=== PATIENT | male | born 1990 | race Caucasian/White ===

== ENCOUNTER 2022-06-06 22:00 | Inpatient (IN) | payer OTHER ==
[2022-06-06 22:49] VITALS: BMI 25.7
[2022-06-06] MEDS ORDERED: NICOTINE 14 MG/24 HOURS TOPICAL PATCH TD PRN (23:19)
[2022-06-06] MEDS ORDERED: IBUPROFEN 600 MG TABLET (FP) PO PRN (23:19)
[2022-06-06] MEDS ORDERED: LOPERAMIDE HCL 2 MG CAPSULE PO PRN (23:19)
[2022-06-06] MEDS ORDERED: hydrOXYzine PAMOATE 25 MG CAPSULE (FP) PO PRN (23:19)
[2022-06-06] MEDS ORDERED: BENZONATATE 200 MG CAPSULE PO PRN (23:19)
[2022-06-06] MEDS ORDERED: DICYCLOMINE HCL 10 MG CAPSULE PO PRN (23:19)
[2022-06-06] MEDS ORDERED: ACETAMINOPHEN 325 MG TABLET (FP) PO PRN ×2 (23:19)
[2022-06-06] MEDS ORDERED: MAG HYDROX/AL HYDROX/SIMETH 30 ML UNIT-DOSE CUP PO PRN (23:19)
[2022-06-06] MEDS ORDERED: NICOTINE POLACRILEX 2 MG GUM BUC PRN (23:19)
[2022-06-06] MEDS ORDERED: MAGNESIUM HYDROX 2400MG/30ML ORAL SUSPENSION 30 ML CUP PO PRN (23:19)
[2022-06-06] MEDS ORDERED: METHOCARBAMOL 500 MG TABLET PO PRN (23:19)
[2022-06-06] MEDS ORDERED: BISMUTH SUBSALICYLATE 524 MG/30 ML PO PRN (23:19)
[2022-06-06] MEDS ORDERED: P-EPHED 60MG/TRIPROLIDI 2.5MG TABLET PO PRN (23:19)
[2022-06-06] MEDS ORDERED: ONDANSETRON *ODT* 4 MG TABLET SL PRN (23:19)
[2022-06-06] MEDS ORDERED: IBUPROFEN 400 MG TABLET (FP) PO PRN (23:19)
[2022-06-06] MEDS ORDERED: POLYETHYLENE GLYCOL (HEALTHYLAX) 3350 17 GM PACKET PO PRN (23:19)
[2022-06-06] MEDS ORDERED: MELATONIN 5 MG TABLETS PO PRN (23:19)
[2022-06-06] MEDS ORDERED: BENZOCAINE/MENTHOL (CHLORASEPTIC ) LOZENGE MM PRN (23:19)
[2022-06-06] MEDS ORDERED: guaiFENesin 600 MG TABLET.ER (FP) PO PRN (23:19)
[2022-06-07] MEDS ORDERED: TUBERCULIN PPD 5 TU/0.1ML VIAL ID ONE (01:52)
[2022-06-07] MEDS: PRENATAL VITAMINS W/ FOLIC ACID TABLET (FP) PO SCH (10:29)
[2022-06-07 12:23] LABS: HEMATOCRIT 41.3 % (35.4-49); HEMOGLOBIN 14.2 GM/dL (11.7-16.9); MCH 31.8 pg (25.7-33.7); MCHC 34.5 g/dl (32.0-35.9); MEAN CELL VOLUME 92.2 fl (80-96); MEAN PLT VOLUME 10.1 fl (7.5-11.1); PLATELET COUNT 148 10^3/uL (134-434); RBC 4.48 M/mm3 (4.00-5.60); RDW 13.5 % (11.9-15.9); WHITE BLOOD COUNT 6.5 K/mm3 (4.0-10.0)
[2022-06-07 12:34] LABS: CALCIUM 8.8 mg/dL (8.5-10.1)
[2022-06-07 12:35] LABS: ALBUMIN 3.6 g/dl (3.4-5.0); CREATININE 0.7 mg/dL (0.55-1.3)
[2022-06-07 12:37] LABS: BILIRUBIN,TOTAL 0.4 mg/dL (0.2-1); TOT PROT 6.2 g/dl (6.4-8.2)
[2022-06-07] MEDS ORDERED: THIAMINE HCL 100 MG TABLET (FP) PO SCH (22:00)
[2022-06-08] MEDS: PRENATAL VITAMINS W/ FOLIC ACID TABLET (FP) PO SCH (10:20)
[2022-06-08 10:34] VITALS: BP 112/71; PULSE 66; RESP 17; TEMP 97.1
== END 2022-06-08 11:35 | disposition home or self-care (01) | DRG 774 ==
LOC: YASAS 22:00 → Y6N 06-07 01:22
PROVIDERS: ADMIT Allergy & Immunology; ATTEND Surgery
PROC: HZ2ZZZZ Detoxification Services for Substance Abuse Treatment (ICD-10-PCS; principal; 2022-06-07)
DX: F10.20 Alcohol dependence, uncomplicated (principal); F10.220 Alcohol dependence with intoxication, uncomplicated; F14.10 Cocaine abuse, uncomplicated; F12.20 Cannabis dependence, uncomplicated; F17.210 Nicotine dependence, cigarettes, uncomplicated; M54.50 Low back pain, unspecified; G89.29 Other chronic pain
CPT/HCPCS: 36415; 80053; 85027; 86780; C9803-CS; U0003; U0005

== ENCOUNTER 2022-11-19 12:00 | Inpatient (IN) | payer OTHER ==
[2022-11-19 12:43] VITALS: BMI 24.7
[2022-11-19] MEDS ORDERED: MAG HYDROX/AL HYDROX/SIMETH 30 ML UNIT-DOSE CUP PO PRN (14:38)
[2022-11-19] MEDS ORDERED: COLLOIDAL OATMEAL 1 BAR EACH TP PRN (14:38)
[2022-11-19] MEDS ORDERED: BENZONATATE 200 MG CAPSULE PO PRN (14:38)
[2022-11-19] MEDS ORDERED: NICOTINE POLACRILEX 2 MG GUM BUC PRN (14:38)
[2022-11-19] MEDS ORDERED: NALOXONE HCL 0.4 MG/ML VIAL IM PRN (14:38)
[2022-11-19] MEDS ORDERED: ACETAMINOPHEN 325 MG TABLET (FP) PO PRN (14:38)
[2022-11-19] MEDS ORDERED: MAGNESIUM HYDROX 2400MG/30ML ORAL SUSPENSION 30 ML CUP PO PRN (14:38)
[2022-11-19] MEDS ORDERED: guaiFENesin 600 MG TABLET.ER (FP) PO PRN (14:38)
[2022-11-19] MEDS ORDERED: POLYETHYLENE GLYCOL (HEALTHYLAX) 3350 17 GM PACKET PO PRN (14:38)
[2022-11-19] MEDS ORDERED: NALOXONE HCL (KLOXXADO) 8 MG SPRAY NS PRN (14:38)
[2022-11-19] MEDS ORDERED: IBUPROFEN 400 MG TABLET (FP) PO PRN (14:38)
[2022-11-19] MEDS ORDERED: BENZOCAINE/MENTHOL (CHLORASEPTIC ) LOZENGE MM PRN (14:38)
[2022-11-19] MEDS ORDERED: LOPERAMIDE HCL 2 MG CAPSULE PO PRN (14:38)
[2022-11-19] MEDS ORDERED: IBUPROFEN 600 MG TABLET (FP) PO PRN (14:38)
[2022-11-19] MEDS ORDERED: hydrOXYzine PAMOATE 25 MG CAPSULE (FP) PO PRN (14:38)
[2022-11-19] MEDS: THIAMINE HCL 100 MG TABLET (FP) PO SCH (21:58)
[2022-11-19] MEDS: MELATONIN 5 MG TABLETS PO SCH (21:58)
[2022-11-20 09:35] LABS: HEMATOCRIT 40.5 % (35.4-49); HEMOGLOBIN 14.3 GM/dL (11.7-16.9); MCH 31.4 pg (25.7-33.7); MCHC 35.3 g/dl (32.0-35.9); MEAN CELL VOLUME 88.8 fl (80-96); MEAN PLT VOLUME 9.2 fl (7.5-11.1); PLATELET COUNT 177 10^3/uL (134-434); RBC 4.56 M/mm3 (4.00-5.60); RDW 14.5 % (11.9-15.9); WHITE BLOOD COUNT 5.7 K/mm3 (4.0-10.0)
[2022-11-20 10:03] LABS: ALBUMIN 3.4 g/dl (3.4-5.0); BLOOD UREA NITROGEN 12.7 mg/dL (7-18); CALCIUM 8.4 mg/dL (8.5-10.1)
[2022-11-20 10:07] LABS: BILIRUBIN,TOTAL 0.5 mg/dL (0.2-1); CREATININE 0.7 mg/dL (0.55-1.3); TOT PROT 5.9 g/dl (6.4-8.2)
[2022-11-20] MEDS: PRENATAL VITAMINS W/ FOLIC ACID TABLET (FP) PO SCH (10:07)
[2022-11-20] MEDS: NICOTINE 21 MG/24 HOURS TOPICAL PATCH TD SCH (10:08)
[2022-11-20 11:30] LABS: POTASSIUM 4.3 mmol/L (3.5-5.1)
[2022-11-20] MEDS ORDERED: TUBERCULIN PPD 5 TU/0.1ML SYRINGE (IN PATIENT USE ONLY) ID ONE (12:00)
[2022-11-20 13:26] LABS: PH,URINE 7.5 (5.0-8.0); URINE APPEARANCE CLEAR; URINE BILIRUBIN NEGATIVE (NEGATIVE); URINE COLOR YELLOW; URINE GLUCOSE (UA) NEGATIVE (NEGATIVE); URINE KETONE NEGATIVE (NEGATIVE); URINE LEUK ESTERASE NEGATIVE (NEGATIVE); URINE NITRITE NEGATIVE (NEGATIVE); URINE PROTEIN NEGATIVE (NEGATIVE); URINE UROBILINOGEN 0.2 mg/dL (0.2-1.0)
[2022-11-20] MEDS ORDERED: ARTIFICIAL TEARS (POLYVINYL ALCOHOL) OPTH DROPS OU PRN (15:38)
[2022-11-20] MEDS: MELATONIN 5 MG TABLETS PO SCH (21:08)
[2022-11-20] MEDS: THIAMINE HCL 100 MG TABLET (FP) PO SCH (21:08)
[2022-11-21] MEDS: PRENATAL VITAMINS W/ FOLIC ACID TABLET (FP) PO SCH (10:02)
[2022-11-21] MEDS: NICOTINE 21 MG/24 HOURS TOPICAL PATCH TD SCH (10:54)
[2022-11-21] MEDS: CHOLECALCIFEROL (VIT D3) 1,000 UNIT (25 MCG) TABLET PO SCH (10:54)
[2022-11-21] MEDS: MELATONIN 5 MG TABLETS PO SCH (21:24)
[2022-11-21] MEDS: THIAMINE HCL 100 MG TABLET (FP) PO SCH (21:24)
[2022-11-22] MEDS: PRENATAL VITAMINS W/ FOLIC ACID TABLET (FP) PO SCH (10:03)
[2022-11-22] MEDS: CHOLECALCIFEROL (VIT D3) 1,000 UNIT (25 MCG) TABLET PO SCH (10:03)
[2022-11-22] MEDS: NICOTINE 21 MG/24 HOURS TOPICAL PATCH TD SCH (10:03)
[2022-11-22] MEDS: MELATONIN 5 MG TABLETS PO SCH (21:14)
[2022-11-22] MEDS: THIAMINE HCL 100 MG TABLET (FP) PO SCH (21:14)
[2022-11-23] MEDS: CHOLECALCIFEROL (VIT D3) 1,000 UNIT (25 MCG) TABLET PO SCH (09:52)
[2022-11-23] MEDS: NICOTINE 21 MG/24 HOURS TOPICAL PATCH TD SCH ×2 (09:52→10:10)
[2022-11-23] MEDS: PRENATAL VITAMINS W/ FOLIC ACID TABLET (FP) PO SCH (09:52)
[2022-11-23] MEDS: THIAMINE HCL 100 MG TABLET (FP) PO SCH (21:30)
[2022-11-23] MEDS: MELATONIN 5 MG TABLETS PO SCH (21:31)
[2022-11-24] MEDS: CHOLECALCIFEROL (VIT D3) 1,000 UNIT (25 MCG) TABLET PO SCH ×2 (10:00→10:07)
[2022-11-24] MEDS: PRENATAL VITAMINS W/ FOLIC ACID TABLET (FP) PO SCH (10:05)
[2022-11-24] MEDS: NICOTINE 21 MG/24 HOURS TOPICAL PATCH TD SCH (10:06)
[2022-11-24] MEDS: THIAMINE HCL 100 MG TABLET (FP) PO SCH (21:13)
[2022-11-24] MEDS: MELATONIN 5 MG TABLETS PO SCH (21:14)
[2022-11-25] MEDS: CHOLECALCIFEROL (VIT D3) 1,000 UNIT (25 MCG) TABLET PO SCH (09:50)
[2022-11-25] MEDS: NICOTINE 21 MG/24 HOURS TOPICAL PATCH TD SCH (09:50)
[2022-11-25] MEDS: PRENATAL VITAMINS W/ FOLIC ACID TABLET (FP) PO SCH (09:50)
[2022-11-25] MEDS: THIAMINE HCL 100 MG TABLET (FP) PO SCH (21:56)
[2022-11-25] MEDS: MELATONIN 5 MG TABLETS PO SCH (23:03)
[2022-11-26] MEDS: CHOLECALCIFEROL (VIT D3) 1,000 UNIT (25 MCG) TABLET PO SCH (09:48)
[2022-11-26] MEDS: NICOTINE 21 MG/24 HOURS TOPICAL PATCH TD SCH (09:48)
[2022-11-26] MEDS: PRENATAL VITAMINS W/ FOLIC ACID TABLET (FP) PO SCH (09:48)
[2022-11-26] MEDS: MELATONIN 5 MG TABLETS PO SCH (21:36)
[2022-11-26] MEDS: THIAMINE HCL 100 MG TABLET (FP) PO SCH (21:36)
[2022-11-27] MEDS: NICOTINE 21 MG/24 HOURS TOPICAL PATCH TD SCH (10:35)
[2022-11-27] MEDS: CHOLECALCIFEROL (VIT D3) 1,000 UNIT (25 MCG) TABLET PO SCH (10:36)
[2022-11-27] MEDS: PRENATAL VITAMINS W/ FOLIC ACID TABLET (FP) PO SCH (10:37)
[2022-11-27] MEDS: THIAMINE HCL 100 MG TABLET (FP) PO SCH (21:17)
[2022-11-27] MEDS: MELATONIN 5 MG TABLETS PO SCH (21:17)
[2022-11-28] MEDS: CHOLECALCIFEROL (VIT D3) 1,000 UNIT (25 MCG) TABLET PO SCH (09:38)
[2022-11-28] MEDS: PRENATAL VITAMINS W/ FOLIC ACID TABLET (FP) PO SCH (09:38)
[2022-11-28] MEDS: NICOTINE 21 MG/24 HOURS TOPICAL PATCH TD SCH (09:38)
[2022-11-28] MEDS: MELATONIN 5 MG TABLETS PO SCH (21:10)
[2022-11-28] MEDS: THIAMINE HCL 100 MG TABLET (FP) PO SCH (21:10)
[2022-11-29] MEDS: PRENATAL VITAMINS W/ FOLIC ACID TABLET (FP) PO SCH (09:34)
[2022-11-29] MEDS: NICOTINE 21 MG/24 HOURS TOPICAL PATCH TD SCH (09:35)
[2022-11-29] MEDS: CHOLECALCIFEROL (VIT D3) 1,000 UNIT (25 MCG) TABLET PO SCH (09:37)
[2022-11-29] MEDS: THIAMINE HCL 100 MG TABLET (FP) PO SCH (22:21)
[2022-11-29] MEDS: MELATONIN 5 MG TABLETS PO SCH (22:21)
[2022-11-30] MEDS: NICOTINE 21 MG/24 HOURS TOPICAL PATCH TD SCH (09:47)
[2022-11-30] MEDS: PRENATAL VITAMINS W/ FOLIC ACID TABLET (FP) PO SCH (09:47)
[2022-11-30] MEDS: CHOLECALCIFEROL (VIT D3) 1,000 UNIT (25 MCG) TABLET PO SCH (12:47)
[2022-11-30] MEDS: THIAMINE HCL 100 MG TABLET (FP) PO SCH (21:36)
[2022-11-30] MEDS: MELATONIN 5 MG TABLETS PO SCH (21:36)
[2022-12-01] MEDS: CHOLECALCIFEROL (VIT D3) 1,000 UNIT (25 MCG) TABLET PO SCH (09:09)
[2022-12-01] MEDS: PRENATAL VITAMINS W/ FOLIC ACID TABLET (FP) PO SCH (09:10)
[2022-12-01] MEDS: NICOTINE 21 MG/24 HOURS TOPICAL PATCH TD SCH (09:10)
[2022-12-01] MEDS: MELATONIN 5 MG TABLETS PO SCH (21:17)
[2022-12-01] MEDS: THIAMINE HCL 100 MG TABLET (FP) PO SCH (21:17)
[2022-12-02] MEDS: NICOTINE 21 MG/24 HOURS TOPICAL PATCH TD SCH (09:41)
[2022-12-02] MEDS: CHOLECALCIFEROL (VIT D3) 1,000 UNIT (25 MCG) TABLET PO SCH (09:41)
[2022-12-02] MEDS: PRENATAL VITAMINS W/ FOLIC ACID TABLET (FP) PO SCH (09:41)
[2022-12-02] MEDS: MELATONIN 5 MG TABLETS PO SCH (21:10)
[2022-12-02] MEDS: THIAMINE HCL 100 MG TABLET (FP) PO SCH (21:10)
[2022-12-02] MEDS: guaiFENesin 600 MG TABLET.ER (FP) PO SCH (21:11)
[2022-12-03] MEDS: guaiFENesin 600 MG TABLET.ER (FP) PO SCH ×2 (10:03→21:36)
[2022-12-03] MEDS: NICOTINE 21 MG/24 HOURS TOPICAL PATCH TD SCH (10:03)
[2022-12-03] MEDS: CHOLECALCIFEROL (VIT D3) 1,000 UNIT (25 MCG) TABLET PO SCH (10:03)
[2022-12-03] MEDS: PRENATAL VITAMINS W/ FOLIC ACID TABLET (FP) PO SCH (10:03)
[2022-12-03] MEDS: MELATONIN 5 MG TABLETS PO SCH (21:36)
[2022-12-03] MEDS: THIAMINE HCL 100 MG TABLET (FP) PO SCH (21:36)
[2022-12-04 06:58] VITALS: RESP 18
[2022-12-04] MEDS: guaiFENesin 600 MG TABLET.ER (FP) PO SCH ×2 (10:10→21:38)
[2022-12-04] MEDS: PRENATAL VITAMINS W/ FOLIC ACID TABLET (FP) PO SCH (10:10)
[2022-12-04] MEDS: NICOTINE 21 MG/24 HOURS TOPICAL PATCH TD SCH (10:10)
[2022-12-04] MEDS: CHOLECALCIFEROL (VIT D3) 1,000 UNIT (25 MCG) TABLET PO SCH (10:11)
[2022-12-04] MEDS: THIAMINE HCL 100 MG TABLET (FP) PO SCH (21:37)
[2022-12-04] MEDS: MELATONIN 5 MG TABLETS PO SCH (21:37)
[2022-12-05 08:59] VITALS: BP 106/68; PULSE 63; TEMP 97.5
[2022-12-05] MEDS: CHOLECALCIFEROL (VIT D3) 1,000 UNIT (25 MCG) TABLET PO SCH (09:49)
[2022-12-05] MEDS: guaiFENesin 600 MG TABLET.ER (FP) PO SCH (09:49)
[2022-12-05] MEDS: PRENATAL VITAMINS W/ FOLIC ACID TABLET (FP) PO SCH (09:50)
[2022-12-05] MEDS: NICOTINE 21 MG/24 HOURS TOPICAL PATCH TD SCH (09:50)
== END 2022-12-05 11:50 | disposition home or self-care (01) | DRG 772 ==
LOC: YASAS 12:00 → Y3E 18:47
PROVIDERS: ADMIT Allergy & Immunology; ATTEND Psychiatry & Neurology Pain Medicine
PROC: HZ42ZZZ Group Counseling for Substance Abuse Treatment, Cognitive-Behavioral (ICD-10-PCS; principal; 2022-11-19)
DX: F10.20 Alcohol dependence, uncomplicated (principal); F14.20 Cocaine dependence, uncomplicated; F17.210 Nicotine dependence, cigarettes, uncomplicated; F43.10 Post-traumatic stress disorder, unspecified; U07.1 COVID-19
CPT/HCPCS: 36415; 80053; 81003; 85027; 86780; 87635; 87811; 93005; 93010

== ENCOUNTER 2023-03-01 22:01 | Inpatient (IN) | payer OTHER ==
[2023-03-01 22:43] VITALS: BMI 24.7
[2023-03-01] MEDS ORDERED: NALOXONE HCL (KLOXXADO) 8 MG SPRAY NS PRN (22:58)
[2023-03-01] MEDS ORDERED: ONDANSETRON *ODT* 4 MG TABLET SL PRN (22:58)
[2023-03-01] MEDS ORDERED: IBUPROFEN 600 MG TABLET (FP) PO PRN (22:58)
[2023-03-01] MEDS ORDERED: BISMUTH SUBSALICYLATE 524 MG/30 ML PO PRN (22:58)
[2023-03-01] MEDS ORDERED: DICYCLOMINE HCL 10 MG CAPSULE PO PRN (22:58)
[2023-03-01] MEDS ORDERED: METHOCARBAMOL 500 MG TABLET PO PRN (22:58)
[2023-03-01] MEDS ORDERED: BENZONATATE 200 MG CAPSULE PO PRN (22:58)
[2023-03-01] MEDS ORDERED: BENZOCAINE/MENTHOL (CHLORASEPTIC ) LOZENGE MM PRN (22:58)
[2023-03-01] MEDS ORDERED: NICOTINE POLACRILEX 4 MG GUM BUC PRN (22:58)
[2023-03-01] MEDS ORDERED: POLYETHYLENE GLYCOL (HEALTHYLAX) 3350 17 GM PACKET PO PRN (22:58)
[2023-03-01] MEDS ORDERED: hydrOXYzine PAMOATE 25 MG CAPSULE (FP) PO PRN (22:58)
[2023-03-01] MEDS ORDERED: IBUPROFEN 400 MG TABLET (FP) PO PRN (22:58)
[2023-03-01] MEDS ORDERED: MAGNESIUM HYDROX 2400MG/30ML ORAL SUSPENSION 30 ML CUP PO PRN (22:58)
[2023-03-01] MEDS ORDERED: guaiFENesin 600 MG TABLET.ER (FP) PO PRN (22:58)
[2023-03-01] MEDS ORDERED: MAG HYDROX/AL HYDROX/SIMETH 30 ML UNIT-DOSE CUP PO PRN (22:58)
[2023-03-01] MEDS ORDERED: NALOXONE HCL 0.4 MG/ML VIAL IM PRN (22:58)
[2023-03-01] MEDS ORDERED: LOPERAMIDE HCL 2 MG CAPSULE PO PRN (22:58)
[2023-03-02] MEDS: PRENATAL VITAMINS W/ FOLIC ACID TABLET (FP) PO SCH (10:13)
[2023-03-02 10:14] LABS: HEMATOCRIT 40.4 % (35.4-49); HEMOGLOBIN 13.6 GM/dL (11.7-16.9); MCH 30.6 pg (25.7-33.7); MCHC 33.7 g/dl (32.0-35.9); MEAN CELL VOLUME 90.8 fl (80-96); MEAN PLT VOLUME 9.3 fl (7.5-11.1); PLATELET COUNT 161 10^3/uL (134-434); RBC 4.45 M/mm3 (4.00-5.60); RDW 14.4 % (11.9-15.9); WHITE BLOOD COUNT 6.2 K/mm3 (4.0-10.0)
[2023-03-02] MEDS: ACETAMINOPHEN 325 MG TABLET (FP) PO PRN ×2 (10:14→17:15)
[2023-03-02] MEDS: NICOTINE 21 MG/24 HOURS TOPICAL PATCH TD SCH (10:14)
[2023-03-02] MEDS ORDERED: chlordiazePOXIDE HCL 25 MG CAPSULE PO PRN (10:29)
[2023-03-02 11:43] LABS: CHLORIDE 110 mmol/L (98-107); POTASSIUM 3.8 mmol/L (3.5-5.1); SODIUM 144 mmol/L (136-145)
[2023-03-02 11:57] LABS: GLUCOSE,RANDOM 127 mg/dL (74-106)
[2023-03-02 11:58] LABS: ANION GAP 6 mmol/L (4-13); BLOOD UREA NITROGEN 15.2 mg/dL (7-18); CO2 28 mmol/L (21-32)
[2023-03-02 11:59] LABS: CALCIUM 8.3 mg/dL (8.5-10.1)
[2023-03-02 12:00] LABS: SGPT/ALT 21 U/L (13-61)
[2023-03-02 12:01] LABS: SGOT/AST 23 U/L (15-37)
[2023-03-02 12:02] LABS: BILIRUBIN,TOTAL 0.2 mg/dL (0.2-1); CREATININE 0.9 mg/dL (0.55-1.3); TOT PROT 5.5 g/dl (6.4-8.2)
[2023-03-02 12:03] LABS: ALK PHOS 82 U/L (45-117)
[2023-03-02] MEDS: chlordiazePOXIDE HCL 25 MG CAPSULE PO SCH ×3 (12:12→22:33)
[2023-03-02] MEDS ORDERED: BACITRACIN 0.9 GM PACKET TP ONE (18:27)
[2023-03-02] MEDS ORDERED: THIAMINE HCL 100 MG TABLET (FP) PO SCH (22:00)
[2023-03-02] MEDS ORDERED: MELATONIN 5 MG TABLETS PO SCH (22:00)
[2023-03-03] MEDS: chlordiazePOXIDE HCL 25 MG CAPSULE PO SCH ×2 (05:39→10:20)
[2023-03-03 06:07] VITALS: BP 122/70; PULSE 60; RESP 17; TEMP 97.8
[2023-03-03] MEDS: PRENATAL VITAMINS W/ FOLIC ACID TABLET (FP) PO SCH (10:20)
[2023-03-03] MEDS: NICOTINE 21 MG/24 HOURS TOPICAL PATCH TD SCH (10:20)
[2023-03-04] MEDS ORDERED: chlordiazePOXIDE HCL 25 MG CAPSULE PO SCH (05:00)
[2023-03-05] MEDS ORDERED: chlordiazePOXIDE HCL 10 MG CAPSULE PO PRN
[2023-03-05] MEDS ORDERED: chlordiazePOXIDE HCL 10 MG CAPSULE PO SCH (05:00)
[2023-03-06] MEDS ORDERED: chlordiazePOXIDE HCL 10 MG CAPSULE PO SCH (05:00)
[2023-03-07] MEDS ORDERED: chlordiazePOXIDE HCL 10 MG CAPSULE PO ONE (05:00)
== END 2023-03-03 09:10 | disposition left against medical advice (07) | DRG 770 ==
LOC: YASAS 22:01 → UNDOADMIN 23:21 → Y3N 23:21 → UNDODISIN 03-03 09:10
PROVIDERS: ADMIT Allergy & Immunology; ATTEND Allergy & Immunology
PROC: HZ2ZZZZ Detoxification Services for Substance Abuse Treatment (ICD-10-PCS; principal; 2023-03-01)
DX: F10.230 Alcohol dependence with withdrawal, uncomplicated (principal); F14.20 Cocaine dependence, uncomplicated; F12.10 Cannabis abuse, uncomplicated; F17.210 Nicotine dependence, cigarettes, uncomplicated; F43.10 Post-traumatic stress disorder, unspecified; G47.00 Insomnia, unspecified; M54.50 Low back pain, unspecified; G89.29 Other chronic pain; Z91.199 Patient's noncompliance with other medical treatment and regimen due to unspecified reason; Z56.0 Unemployment, unspecified; Z59.00 Homelessness unspecified
CPT/HCPCS: 36415; 80053; 80307; 85027; 86780; 87635; 87811

== ENCOUNTER 2023-03-13 13:23 | Inpatient (IN) | payer OTHER ==
[2023-03-13 13:49] VITALS: BMI 25.3
[2023-03-13] MEDS ORDERED: ACETAMINOPHEN 325 MG TABLET (FP) PO PRN (15:06)
[2023-03-13] MEDS ORDERED: NALOXONE HCL 0.4 MG/ML VIAL IM PRN (15:06)
[2023-03-13] MEDS ORDERED: NICOTINE POLACRILEX 2 MG GUM BUC PRN (15:06)
[2023-03-13] MEDS ORDERED: IBUPROFEN 400 MG TABLET (FP) PO PRN (15:06)
[2023-03-13] MEDS ORDERED: BENZOCAINE/MENTHOL (CHLORASEPTIC ) LOZENGE MM PRN (15:06)
[2023-03-13] MEDS ORDERED: DICYCLOMINE HCL 10 MG CAPSULE PO PRN (15:06)
[2023-03-13] MEDS ORDERED: ONDANSETRON *ODT* 4 MG TABLET SL PRN (15:06)
[2023-03-13] MEDS ORDERED: BISMUTH SUBSALICYLATE 262 MG/15 ML BTL PO PRN (15:06)
[2023-03-13] MEDS ORDERED: guaiFENesin 600 MG TABLET.ER (FP) PO PRN (15:06)
[2023-03-13] MEDS ORDERED: LOPERAMIDE HCL 2 MG CAPSULE PO PRN (15:06)
[2023-03-13] MEDS ORDERED: POLYETHYLENE GLYCOL (HEALTHYLAX) 3350 17 GM PACKET PO PRN (15:06)
[2023-03-13] MEDS ORDERED: METHOCARBAMOL 500 MG TABLET PO PRN (15:06)
[2023-03-13] MEDS ORDERED: NALOXONE HCL (KLOXXADO) 8 MG SPRAY NS PRN (15:06)
[2023-03-13] MEDS ORDERED: BENZONATATE 200 MG CAPSULE PO PRN (15:06)
[2023-03-13] MEDS ORDERED: hydrOXYzine PAMOATE 25 MG CAPSULE (FP) PO PRN (15:06)
[2023-03-13] MEDS ORDERED: MAG HYDROX/AL HYDROX/SIMETH 30 ML UNIT-DOSE CUP PO PRN (15:06)
[2023-03-13] MEDS ORDERED: MAGNESIUM HYDROX 2400MG/30ML ORAL SUSPENSION 30 ML CUP PO PRN (15:06)
[2023-03-13] MEDS ORDERED: IBUPROFEN 600 MG TABLET (FP) PO PRN (15:06)
[2023-03-13] MEDS ORDERED: THIAMINE HCL 100 MG TABLET (FP) PO SCH (22:00)
[2023-03-13] MEDS ORDERED: MELATONIN 5 MG TABLETS PO SCH (22:00)
[2023-03-14] MEDS ORDERED: NICOTINE 14 MG/24 HOURS TOPICAL PATCH TD SCH (10:00)
[2023-03-14] MEDS ORDERED: PRENATAL VITAMINS W/ FOLIC ACID TABLET (FP) PO SCH (10:00)
[2023-03-14] MEDS ORDERED: chlordiazePOXIDE HCL 25 MG CAPSULE PO PRN (10:39)
[2023-03-14] MEDS: chlordiazePOXIDE HCL 25 MG CAPSULE PO SCH ×2 (11:02→17:14)
[2023-03-14 14:35] LABS: HEMATOCRIT 42.6 % (35.4-49); HEMOGLOBIN 14.7 GM/dL (11.7-16.9); MCH 31.2 pg (25.7-33.7); MCHC 34.6 g/dl (32.0-35.9); MEAN CELL VOLUME 90.4 fl (80-96); MEAN PLT VOLUME 8.8 fl (7.5-11.1); PLATELET COUNT 187 10^3/uL (134-434); RBC 4.71 M/mm3 (4.00-5.60); RDW 14.7 % (11.9-15.9); WHITE BLOOD COUNT 5.5 K/mm3 (4.0-10.0)
[2023-03-14 14:37] LABS: CHLORIDE 108 mmol/L (98-107); SODIUM 143 mmol/L (136-145)
[2023-03-14 15:06] LABS: CALCIUM 8.7 mg/dL (8.5-10.1)
[2023-03-14 15:07] LABS: ALBUMIN 2.9 g/dl (3.4-5.0); ANION GAP 5 mmol/L (4-13); BLOOD UREA NITROGEN 10.1 mg/dL (7-18); CO2 31 mmol/L (21-32); GLUCOSE,RANDOM 84 mg/dL (74-106)
[2023-03-14 15:09] LABS: CREATININE 0.7 mg/dL (0.55-1.3); SGOT/AST 19 U/L (15-37); SGPT/ALT 24 U/L (13-61)
[2023-03-14 15:12] LABS: BILIRUBIN,TOTAL 0.5 mg/dL (0.2-1); TOT PROT 5.4 g/dl (6.4-8.2)
[2023-03-14 15:13] LABS: ALK PHOS 59 U/L (45-117)
[2023-03-14 18:00] VITALS: BP 121/63; PULSE 72; RESP 17; TEMP 97.3
[2023-03-15] MEDS ORDERED: chlordiazePOXIDE HCL 25 MG CAPSULE PO SCH (05:00)
[2023-03-15] MEDS ORDERED: FLU VACCINE (FLULAVAL) PF 60 MCG/0.5 ML SYRINGE 2023-2024 IM ONE (15:22)
[2023-03-16] MEDS ORDERED: chlordiazePOXIDE HCL 10 MG CAPSULE PO PRN
[2023-03-16] MEDS ORDERED: chlordiazePOXIDE HCL 10 MG CAPSULE PO SCH (05:00)
[2023-03-17] MEDS ORDERED: chlordiazePOXIDE HCL 10 MG CAPSULE PO SCH (05:00)
[2023-03-18] MEDS ORDERED: chlordiazePOXIDE HCL 10 MG CAPSULE PO ONE (05:00)
== END 2023-03-14 18:41 | disposition left against medical advice (07) | DRG 770 ==
LOC: YASAS 13:23 → Y6N 15:11 → UNDOADMIN 15:11 → UNDODISIN 03-14 18:41
PROVIDERS: ADMIT Allergy & Immunology; ATTEND Allergy & Immunology
PROC: HZ2ZZZZ Detoxification Services for Substance Abuse Treatment (ICD-10-PCS; principal; 2023-03-13)
DX: F10.230 Alcohol dependence with withdrawal, uncomplicated (principal); F14.20 Cocaine dependence, uncomplicated; F17.210 Nicotine dependence, cigarettes, uncomplicated; F19.24 Other psychoactive substance dependence with psychoactive substance-induced mood disorder
CPT/HCPCS: 36415; 80053; 80307; 85027; 86780; 87635

== ENCOUNTER 2023-06-10 14:12 | Inpatient (IN) | payer OTHER ==
[2023-06-10 14:36] VITALS: BMI 27.6
[2023-06-10] MEDS: diazePAM 5 MG TABLET PO PRN (19:30)
[2023-06-10] MEDS: diazePAM 5 MG TABLET PO SCH (23:17)
[2023-06-10] MEDS: BACITRACIN 0.9 GM PACKET TP SCH (23:17)
[2023-06-10] MEDS ORDERED: ONDANSETRON *ODT* 4 MG TABLET SL PRN (23:44)
[2023-06-10] MEDS ORDERED: NICOTINE POLACRILEX 2 MG GUM BUC PRN (23:44)
[2023-06-10] MEDS ORDERED: MAGNESIUM HYDROX 2400MG/30ML ORAL SUSPENSION 30 ML CUP PO PRN (23:44)
[2023-06-10] MEDS ORDERED: hydrOXYzine PAMOATE 25 MG CAPSULE (FP) PO PRN (23:44)
[2023-06-10] MEDS ORDERED: ACETAMINOPHEN 325 MG TABLET (FP) PO PRN (23:44)
[2023-06-10] MEDS ORDERED: MAG HYDROX/AL HYDROX/SIMETH 30 ML UNIT-DOSE CUP PO PRN (23:44)
[2023-06-10] MEDS ORDERED: DICYCLOMINE HCL 10 MG CAPSULE PO PRN (23:44)
[2023-06-10] MEDS ORDERED: BENZOCAINE/MENTHOL (CHLORASEPTIC ) LOZENGE MM PRN (23:44)
[2023-06-10] MEDS ORDERED: IBUPROFEN 400 MG TABLET (FP) PO PRN (23:44)
[2023-06-10] MEDS ORDERED: IBUPROFEN 600 MG TABLET (FP) PO PRN (23:44)
[2023-06-10] MEDS ORDERED: NALOXONE HCL (KLOXXADO) 8 MG SPRAY NS PRN (23:44)
[2023-06-10] MEDS ORDERED: BISMUTH SUBSALICYLATE 524 MG/30 ML PO PRN (23:44)
[2023-06-10] MEDS ORDERED: NALOXONE HCL 0.4 MG/ML VIAL IM PRN (23:44)
[2023-06-10] MEDS ORDERED: BENZONATATE 200 MG CAPSULE PO PRN (23:44)
[2023-06-10] MEDS ORDERED: POLYETHYLENE GLYCOL (HEALTHYLAX) 3350 17 GM PACKET PO PRN (23:44)
[2023-06-10] MEDS ORDERED: LOPERAMIDE HCL 2 MG CAPSULE PO PRN (23:44)
[2023-06-10] MEDS ORDERED: guaiFENesin 600 MG TABLET.ER (FP) PO PRN (23:44)
[2023-06-10] MEDS ORDERED: METHOCARBAMOL 500 MG TABLET PO PRN (23:44)
[2023-06-11] MEDS ORDERED: PNEUMOC 20-VAL CONJ-DIP CRM/PF 0.5 ML SYRINGE IM ONE (06:00)
[2023-06-11 06:42] VITALS: RESP 16
[2023-06-11 08:27] LABS: CHLORIDE 106 mmol/L (98-107); SODIUM 136 mmol/L (136-145)
[2023-06-11 08:39] LABS: HEMATOCRIT 39.9 % (35.4-49); MCH 31.4 pg (25.7-33.7); MEAN CELL VOLUME 89.5 fl (80-96); MEAN PLT VOLUME 9.6 fl (7.5-11.1); PLATELET COUNT 180 10^3/uL (134-434); RBC 4.46 M/mm3 (4.00-5.60); RDW 14.2 % (11.9-15.9); WHITE BLOOD COUNT 5.8 K/mm3 (4.0-10.0)
[2023-06-11 08:41] LABS: ALBUMIN 3.1 g/dl (3.4-5.0); CALCIUM 8.3 mg/dL (8.5-10.1)
[2023-06-11 08:42] LABS: ANION GAP 2 mmol/L (4-13); BLOOD UREA NITROGEN 16.9 mg/dL (7-18); CO2 28 mmol/L (21-32); GLUCOSE,RANDOM 89 mg/dL (74-106)
[2023-06-11 08:44] LABS: CREATININE 0.7 mg/dL (0.55-1.3); SGPT/ALT 25 U/L (13-61)
[2023-06-11 08:45] LABS: SGOT/AST 25 U/L (15-37)
[2023-06-11 08:46] LABS: ALK PHOS 71 U/L (45-117); BILIRUBIN,TOTAL 0.4 mg/dL (0.2-1); TOT PROT 5.6 g/dl (6.4-8.2)
[2023-06-11] MEDS: PRENATAL VITAMINS W/ FOLIC ACID TABLET (FP) PO SCH (10:21)
[2023-06-11] MEDS: PNEUMOC 20-VAL CONJ-DIP CRM/PF 0.5 ML SYRINGE IM ONE (11:55)
[2023-06-11 12:42] VITALS: BP 121/62; PULSE 69; TEMP 98.6
[2023-06-11 14:29] LABS: HIV INTERPRETATION NEGATIVE (NEGATIVE)
[2023-06-11] MEDS ORDERED: MELATONIN 5 MG TABLETS PO SCH (22:00)
[2023-06-11] MEDS ORDERED: THIAMINE 100 MG TABLET PO SCH (22:00)
[2023-06-12] MEDS ORDERED: diazePAM 5 MG TABLET PO SCH (06:00)
[2023-06-13] MEDS ORDERED: diazePAM 5 MG TABLET PO SCH (06:00)
[2023-06-14] MEDS ORDERED: diazePAM 5 MG TABLET PO ONE (06:00)
== END 2023-06-11 13:10 | disposition left against medical advice (07) | DRG 770 ==
LOC: YASAS 14:12 → Y6N 18:49
PROVIDERS: ADMIT Allergy & Immunology; ATTEND Surgery
PROC: HZ2ZZZZ Detoxification Services for Substance Abuse Treatment (ICD-10-PCS; principal; 2023-06-10)
DX: F10.230 Alcohol dependence with withdrawal, uncomplicated (principal); F14.20 Cocaine dependence, uncomplicated; F12.20 Cannabis dependence, uncomplicated; F17.210 Nicotine dependence, cigarettes, uncomplicated; Z59.02 Unsheltered homelessness
CPT/HCPCS: 36415; 80053; 80305; 80307; 85027; 86780; 86803; 87389

== ENCOUNTER 2023-08-07 14:19 | Inpatient (IN) | payer OTHER ==
[2023-08-07 15:17] VITALS: BMI 26.9
[2023-08-07] MEDS ORDERED: NICOTINE POLACRILEX 2 MG LOZENGE BC PRN (15:42)
[2023-08-07] MEDS ORDERED: DICYCLOMINE HCL 10 MG CAPSULE PO PRN (15:42)
[2023-08-07] MEDS ORDERED: guaiFENesin 600 MG TABLET.ER (FP) PO PRN (15:42)
[2023-08-07] MEDS ORDERED: IBUPROFEN 600 MG TABLET (FP) PO PRN (15:42)
[2023-08-07] MEDS ORDERED: P-EPHED 60MG/TRIPROLIDI 2.5MG TABLET PO PRN (15:42)
[2023-08-07] MEDS ORDERED: LOPERAMIDE HCL 2 MG CAPSULE PO PRN (15:42)
[2023-08-07] MEDS ORDERED: IBUPROFEN 400 MG TABLET (FP) PO PRN (15:42)
[2023-08-07] MEDS ORDERED: BENZOCAINE/MENTHOL (CHLORASEPTIC ) LOZENGE MM PRN (15:42)
[2023-08-07] MEDS ORDERED: ONDANSETRON *ODT* 4 MG TABLET SL PRN (15:42)
[2023-08-07] MEDS ORDERED: BISMUTH SUBSALICYLATE 262 MG/15 ML BTL PO PRN (15:42)
[2023-08-07] MEDS ORDERED: NICOTINE POLACRILEX 2 MG GUM BUC PRN (15:42)
[2023-08-07] MEDS ORDERED: BENZONATATE 200 MG CAPSULE PO PRN (15:42)
[2023-08-07] MEDS ORDERED: ACETAMINOPHEN 325 MG TABLET (FP) PO PRN (15:42)
[2023-08-07] MEDS ORDERED: MAG HYDROX/AL HYDROX/SIMETH 30 ML UNIT-DOSE CUP PO PRN (15:42)
[2023-08-07] MEDS ORDERED: POLYETHYLENE GLYCOL (HEALTHYLAX) 3350 17 GM PACKET PO PRN (15:42)
[2023-08-07] MEDS ORDERED: MAGNESIUM HYDROX 2400MG/30ML ORAL SUSPENSION 30 ML CUP PO PRN (15:42)
[2023-08-07] MEDS: METHOCARBAMOL 500 MG TABLET PO PRN (18:11)
[2023-08-07] MEDS: hydrOXYzine PAMOATE 25 MG CAPSULE (FP) PO PRN (18:11)
[2023-08-07] MEDS: THIAMINE 100 MG TABLET PO SCH (22:30)
[2023-08-07] MEDS: MELATONIN 5 MG TABLETS PO SCH (22:31)
[2023-08-08] MEDS: NICOTINE 7 MG/24 HOURS TOPICAL PATCH TD SCH (10:12)
[2023-08-08] MEDS: PRENATAL VITAMINS W/ FOLIC ACID TABLET (FP) PO SCH (10:12)
[2023-08-08] MEDS ORDERED: chlordiazePOXIDE HCL 25 MG CAPSULE PO PRN (10:30)
[2023-08-08] MEDS: chlordiazePOXIDE HCL 25 MG CAPSULE PO SCH (10:52)
[2023-08-08 11:08] LABS: HEMATOCRIT 41.6 % (35.4-49); HEMOGLOBIN 14.3 GM/dL (11.7-16.9); MCH 30.7 pg (25.7-33.7); MCHC 34.3 g/dl (32.0-35.9); MEAN CELL VOLUME 89.4 fl (80-96); MEAN PLT VOLUME 9.1 fl (7.5-11.1); PLATELET COUNT 195 10^3/uL (134-434); RBC 4.66 M/mm3 (4.00-5.60); RDW 14.7 % (11.9-15.9); WHITE BLOOD COUNT 6.7 K/mm3 (4.0-10.0)
[2023-08-08 11:57] LABS: POTASSIUM 3.8 mmol/L (3.5-5.1)
[2023-08-08 12:00] LABS: CALCIUM 8.7 mg/dL (8.5-10.1)
[2023-08-08 12:01] LABS: ALBUMIN 3.4 g/dl (3.4-5.0); BLOOD UREA NITROGEN 11.7 mg/dL (7-18)
[2023-08-08 12:04] LABS: CREATININE 0.7 mg/dL (0.55-1.3)
[2023-08-08 12:05] LABS: TOT PROT 6.4 g/dl (6.4-8.2)
[2023-08-09 06:06] VITALS: TEMP 97.8
[2023-08-09 09:15] VITALS: BP 117/56; PULSE 60; RESP 18
[2023-08-10] MEDS ORDERED: chlordiazePOXIDE HCL 25 MG CAPSULE PO SCH (05:00)
[2023-08-11] MEDS ORDERED: chlordiazePOXIDE HCL 10 MG CAPSULE PO PRN
[2023-08-11] MEDS ORDERED: chlordiazePOXIDE HCL 10 MG CAPSULE PO SCH (05:00)
[2023-08-12] MEDS ORDERED: chlordiazePOXIDE HCL 10 MG CAPSULE PO SCH (05:00)
[2023-08-13] MEDS ORDERED: chlordiazePOXIDE HCL 10 MG CAPSULE PO ONE (05:00)
== END 2023-08-09 11:14 | disposition left against medical advice (07) | DRG 770 ==
LOC: YASAS 14:19 → Y3N 16:22
PROVIDERS: ADMIT Allergy & Immunology; ATTEND Surgery
PROC: HZ2ZZZZ Detoxification Services for Substance Abuse Treatment (ICD-10-PCS; principal; 2023-08-07)
DX: F10.230 Alcohol dependence with withdrawal, uncomplicated (principal); F14.20 Cocaine dependence, uncomplicated; F12.20 Cannabis dependence, uncomplicated; F17.210 Nicotine dependence, cigarettes, uncomplicated; Z59.02 Unsheltered homelessness
CPT/HCPCS: 36415; 80053; 80305; 85027; 86780

== ENCOUNTER 2023-09-30 13:51 | Inpatient (IN) | payer OTHER ==
[2023-09-30 14:30] VITALS: BMI 27.1
[2023-09-30] MEDS ORDERED: POLYETHYLENE GLYCOL (HEALTHYLAX) 3350 17 GM PACKET PO PRN (15:08)
[2023-09-30] MEDS ORDERED: BISMUTH SUBSALICYLATE 524 MG/30 ML PO PRN (15:08)
[2023-09-30] MEDS ORDERED: MAG HYDROX/AL HYDROX/SIMETH 30 ML UNIT-DOSE CUP PO PRN (15:08)
[2023-09-30] MEDS ORDERED: IBUPROFEN 600 MG TABLET (FP) PO PRN (15:08)
[2023-09-30] MEDS ORDERED: ACETAMINOPHEN 325 MG TABLET (FP) PO PRN (15:08)
[2023-09-30] MEDS ORDERED: BENZOCAINE/MENTHOL (CHLORASEPTIC ) LOZENGE MM PRN (15:08)
[2023-09-30] MEDS ORDERED: guaiFENesin 600 MG TABLET.ER (FP) PO PRN (15:08)
[2023-09-30] MEDS ORDERED: NALOXONE (NARCAN) HCL 4 MG/0.1 ML SPRAY NS PRN (15:08)
[2023-09-30] MEDS ORDERED: BENZONATATE 200 MG CAPSULE PO PRN (15:08)
[2023-09-30] MEDS ORDERED: MAGNESIUM HYDROX 2400MG/30ML ORAL SUSPENSION 30 ML CUP PO PRN (15:08)
[2023-09-30] MEDS ORDERED: DICYCLOMINE HCL 10 MG CAPSULE PO PRN (15:08)
[2023-09-30] MEDS ORDERED: IBUPROFEN 400 MG TABLET (FP) PO PRN (15:08)
[2023-09-30] MEDS ORDERED: ONDANSETRON *ODT* 4 MG TABLET SL PRN (15:08)
[2023-09-30] MEDS ORDERED: NALOXONE HCL 0.4 MG/ML VIAL IM PRN (15:08)
[2023-09-30] MEDS ORDERED: LOPERAMIDE HCL 2 MG CAPSULE PO PRN (15:08)
[2023-09-30] MEDS ORDERED: chlordiazePOXIDE HCL 25 MG CAPSULE PO PRN (15:10)
[2023-09-30] MEDS ORDERED: PRENATAL VITAMINS W/ FOLIC ACID TABLET (FP) PO ONE (16:04)
[2023-09-30] MEDS: PRENATAL VITAMINS W/ FOLIC ACID TABLET (FP) PO SCH (16:05)
[2023-09-30] MEDS ORDERED: chlordiazePOXIDE HCL 25 MG CAPSULE ONE (16:56)
[2023-09-30] MEDS: chlordiazePOXIDE HCL 25 MG CAPSULE PO SCH (17:00)
[2023-09-30] MEDS: METHOCARBAMOL 500 MG TABLET PO PRN (18:35)
[2023-09-30] MEDS: MELATONIN 5 MG TABLETS PO SCH (22:30)
[2023-09-30] MEDS: THIAMINE 100 MG TABLET PO SCH (22:30)
[2023-10-01] MEDS: NICOTINE 14 MG/24 HOURS TOPICAL PATCH TD SCH (10:42)
[2023-10-01] MEDS: hydrOXYzine PAMOATE 25 MG CAPSULE (FP) PO PRN (11:16)
[2023-10-01 11:17] VITALS: RESP 18
[2023-10-01 11:34] LABS: CHLORIDE 102 mmol/L (98-107); SODIUM 138 mmol/L (136-145)
[2023-10-01 11:40] LABS: CALCIUM 8.8 mg/dL (8.5-10.1)
[2023-10-01 11:41] LABS: ALBUMIN 3.5 g/dl (3.4-5.0); ANION GAP 9 mmol/L (4-13); BLOOD UREA NITROGEN 9.9 mg/dL (7-18); CO2 28 mmol/L (21-32); GLUCOSE,RANDOM 107 mg/dL (74-106)
[2023-10-01 11:44] LABS: CREATININE 0.8 mg/dL (0.55-1.3); SGOT/AST 39 U/L (15-37); SGPT/ALT 38 U/L (13-61)
[2023-10-01 11:46] LABS: TOT PROT 6.1 g/dl (6.4-8.2)
[2023-10-01 11:47] LABS: ALK PHOS 60 U/L (45-117)
[2023-10-01 11:52] LABS: HEMATOCRIT 43.2 % (35.4-49); HEMOGLOBIN 14.3 GM/dL (11.7-16.9); MCH 30.6 pg (25.7-33.7); MCHC 33.2 g/dl (32.0-35.9); MEAN CELL VOLUME 92.1 fl (80-96); MEAN PLT VOLUME 9.5 fl (7.5-11.1); PLATELET COUNT 171 10^3/uL (134-434); RBC 4.68 M/mm3 (4.00-5.60); RDW 14.9 % (11.9-15.9); WHITE BLOOD COUNT 5.7 K/mm3 (4.0-10.0)
[2023-10-01 12:30] LABS: HIV INTERPRETATION NEGATIVE (NEGATIVE)
[2023-10-01 14:13] VITALS: BP 109/63; PULSE 76; TEMP 98.4
[2023-10-02] MEDS ORDERED: chlordiazePOXIDE HCL 25 MG CAPSULE PO SCH (05:00)
[2023-10-03] MEDS ORDERED: chlordiazePOXIDE HCL 10 MG CAPSULE PO PRN
[2023-10-03] MEDS ORDERED: chlordiazePOXIDE HCL 10 MG CAPSULE PO SCH (05:00)
[2023-10-04] MEDS ORDERED: chlordiazePOXIDE HCL 10 MG CAPSULE PO SCH (05:00)
[2023-10-05] MEDS ORDERED: chlordiazePOXIDE HCL 10 MG CAPSULE PO ONE (05:00)
== END 2023-10-01 13:45 | disposition left against medical advice (07) | DRG 770 ==
LOC: YASAS 13:51 → Y3N 15:34
PROVIDERS: ADMIT Allergy & Immunology; ATTEND Surgery
PROC: HZ2ZZZZ Detoxification Services for Substance Abuse Treatment (ICD-10-PCS; principal; 2023-09-30)
DX: F10.230 Alcohol dependence with withdrawal, uncomplicated (principal); F14.20 Cocaine dependence, uncomplicated; F12.20 Cannabis dependence, uncomplicated; F17.210 Nicotine dependence, cigarettes, uncomplicated; Z87.440 Personal history of urinary (tract) infections; Z56.0 Unemployment, unspecified; Z59.00 Homelessness unspecified
CPT/HCPCS: 36415; 80053; 80305; 80307; 85027; 86780; 87389; 93005; 93010

== ENCOUNTER 2023-12-09 14:44 | Inpatient (IN) | payer OTHER ==
[2023-12-09 15:09] VITALS: BMI 26.3
[2023-12-09] MEDS ORDERED: NALOXONE (NARCAN) HCL 4 MG/0.1 ML SPRAY NS PRN (15:47)
[2023-12-09] MEDS ORDERED: IBUPROFEN 600 MG TABLET (FP) PO PRN (15:47)
[2023-12-09] MEDS ORDERED: LOPERAMIDE HCL 2 MG CAPSULE PO PRN (15:47)
[2023-12-09] MEDS ORDERED: DICYCLOMINE HCL 10 MG CAPSULE PO PRN (15:47)
[2023-12-09] MEDS ORDERED: POLYETHYLENE GLYCOL (HEALTHYLAX) 3350 17 GM PACKET PO PRN (15:47)
[2023-12-09] MEDS ORDERED: MAG HYDROX/AL HYDROX/SIMETH 30 ML UNIT-DOSE CUP PO PRN (15:47)
[2023-12-09] MEDS ORDERED: BISMUTH SUBSALICYLATE 524 MG/30 ML PO PRN (15:47)
[2023-12-09] MEDS ORDERED: ONDANSETRON *ODT* 4 MG TABLET SL PRN (15:47)
[2023-12-09] MEDS ORDERED: guaiFENesin 600 MG TABLET.ER (FP) PO PRN (15:47)
[2023-12-09] MEDS ORDERED: MAGNESIUM HYDROX 2400MG/30ML ORAL SUSPENSION 30 ML CUP PO PRN (15:47)
[2023-12-09] MEDS ORDERED: BENZONATATE 200 MG CAPSULE PO PRN (15:47)
[2023-12-09] MEDS ORDERED: BENZOCAINE/MENTHOL (CHLORASEPTIC ) LOZENGE MM PRN (15:47)
[2023-12-09] MEDS ORDERED: NICOTINE 14 MG/24 HOURS TOPICAL PATCH TD ONE (16:38)
[2023-12-09] MEDS ORDERED: diazePAM 5 MG TABLET ONE (16:38)
[2023-12-09] MEDS ORDERED: PRENATAL VITAMINS W/ FOLIC ACID TABLET (FP) PO ONE (16:38)
[2023-12-09] MEDS: PRENATAL VITAMINS W/ FOLIC ACID TABLET (FP) PO SCH (16:43)
[2023-12-09] MEDS: NICOTINE 14 MG/24 HOURS TOPICAL PATCH TD SCH (16:43)
[2023-12-09] MEDS: diazePAM 5 MG TABLET PO SCH (16:44)
[2023-12-09] MEDS: METHOCARBAMOL 500 MG TABLET PO PRN (17:46)
[2023-12-09] MEDS: ACETAMINOPHEN 325 MG TABLET (FP) PO PRN (17:46)
[2023-12-09] MEDS: hydrOXYzine PAMOATE 25 MG CAPSULE (FP) PO PRN (17:47)
[2023-12-09] MEDS: MELATONIN 5 MG TABLETS PO SCH (22:24)
[2023-12-09] MEDS: THIAMINE 100 MG TABLET PO SCH (22:24)
[2023-12-10 12:26] LABS: HEMATOCRIT 41.2 % (35.4-49); HEMOGLOBIN 14.2 GM/dL (11.7-16.9); MCH 31.4 pg (25.7-33.7); MCHC 34.5 g/dl (32.0-35.9); MEAN CELL VOLUME 91.1 fl (80-96); MEAN PLT VOLUME 9.5 fl (7.5-11.1); PLATELET COUNT 144 10^3/uL (134-434); RBC 4.52 M/mm3 (4.00-5.60); RDW 14.5 % (11.9-15.9); WHITE BLOOD COUNT 4.7 K/mm3 (4.0-10.0)
[2023-12-10 12:27] LABS: CHLORIDE 106 mmol/L (98-107); POTASSIUM 3.9 mmol/L (3.5-5.1); SODIUM 140 mmol/L (136-145)
[2023-12-10 12:29] LABS: ALBUMIN 3.2 g/dl (3.4-5.0); ANION GAP 4 mmol/L (4-13); BLOOD UREA NITROGEN 8.5 mg/dL (7-18); CALCIUM 8.7 mg/dL (8.5-10.1); CO2 31 mmol/L (21-32); GLUCOSE,RANDOM 81 mg/dL (74-106)
[2023-12-10 12:32] LABS: CREATININE 0.7 mg/dL (0.55-1.3); SGPT/ALT 96 U/L (13-61)
[2023-12-10 12:33] LABS: SGOT/AST 58 U/L (15-37)
[2023-12-10 12:34] LABS: BILIRUBIN,TOTAL 0.9 mg/dL (0.2-1); TOT PROT 5.5 g/dl (6.4-8.2)
[2023-12-10 12:35] LABS: ALK PHOS 52 U/L (45-117)
[2023-12-10] MEDS: IBUPROFEN 400 MG TABLET (FP) PO PRN (18:48)
[2023-12-10 21:47] LABS: HIV INTERPRETATION NEGATIVE (NEGATIVE)
[2023-12-10] MEDS: MELATONIN 5 MG TABLETS PO SCH (22:52)
[2023-12-11] MEDS: diazePAM 5 MG TABLET PO SCH (05:57)
[2023-12-11 06:28] VITALS: PULSE 61
[2023-12-11 08:33] VITALS: BP 108/59; RESP 16; TEMP 97.7
[2023-12-11] MEDS: diazePAM 5 MG TABLET PO PRN (10:01)
[2023-12-11] MEDS: NALOXONE (NYS OPIOID OVERDOSE PROGRAM) 4 MG/0.1 ML SPRAY NS PRN (11:33)
[2023-12-12] MEDS ORDERED: diazePAM 5 MG TABLET PO SCH (06:00)
[2023-12-13] MEDS ORDERED: diazePAM 5 MG TABLET PO ONE (06:00)
== END 2023-12-11 11:44 | disposition left against medical advice (07) | DRG 770 ==
LOC: YASAS 14:44 → Y6N 16:47
PROVIDERS: ADMIT Allergy & Immunology; ATTEND Surgery
PROC: HZ2ZZZZ Detoxification Services for Substance Abuse Treatment (ICD-10-PCS; principal; 2023-12-09)
DX: F10.230 Alcohol dependence with withdrawal, uncomplicated (principal); F14.20 Cocaine dependence, uncomplicated; F12.20 Cannabis dependence, uncomplicated; F17.210 Nicotine dependence, cigarettes, uncomplicated; F43.10 Post-traumatic stress disorder, unspecified; G47.00 Insomnia, unspecified; R10.30 Lower abdominal pain, unspecified; M25.561 Pain in right knee; M54.50 Low back pain, unspecified; G89.29 Other chronic pain
CPT/HCPCS: 36415; 80053; 80305; 80307; 85027; 86780; 87389; 93005; 93010